=== PATIENT | male | born 1955 | race Hispanic/Latino ===

== ENCOUNTER 2019-06-30 20:19 | Emergency (ER) | payer OTHER ==
[2019-06-30] MEDS ORDERED: ONDANSETRON 4 MG/2 ML VIAL ONE (20:43)
[2019-06-30] MEDS ORDERED: MORPHINE 4 MG/ML SYR ONE (20:43)
[2019-06-30] MEDS ORDERED: FENTANYL CITR 100 MCG/2 ML ONE (21:01)
[2019-06-30] MEDS ORDERED: NA CHLORIDE 0.9% 1,000 ML ONE (21:07)
[2019-06-30] MEDS ORDERED: propofoL 200 MG/20 ML VIAL IV ONE (21:32)
--- NOTE | 2019-06-30 22:29 | ER ---
Nurse's Notes [facility] Name: Pb Pederson Age: 63 yrs Sex: Male : 1955 Arrival Date: 06/30/2019 Time: 20:21 Bed 8 Private MD: Diagnosis: Dislocation of unspecified parts of right shoulder girdle Presentation: 06/29 20:32 Chief complaint: Patient states: he tripped over the plank in the doorway then fell bb onto his right arm. Coronavirus screen: The patient has NOT traveled to a country currently being monitored by the CDC within the last 14 days. Proceed with normal triage procedures. Ebola Screen: No symptoms or risks identified at this time. Initial Sepsis Screen: Does the patient meet any 2 criteria? No. Patient's initial sepsis screen is negative. Does the patient have a suspected source of infection? No. Patient's initial sepsis screen is negative. Risk Assessment: Do you want to hurt yourself or someone else? Patient reports no desire to harm self or others. Onset of symptoms was June 30, 2019. 20:32 Method Of Arrival: Ambulatory bb 20:32 Acuity: NICK 3 bb 20:40 Care prior to arrival: None. Mechanism of Injury: Fall from standing position. Trauma mg2 event details: Injury occurred in the [facility], Injury occurred: at home. Injury occurred: June 30, 2019. Trauma Activation: Not Applicable Physician: ED Physician; Name: ; Notified At: ; Arrived At: Physician: General Surgeon; Name: ; Notified At: ; Arrived At: Physician: Radiology; Name: ; Notified At: ; Arrived At: Physician: Respiratory; Name: ; Notified At: ; Arrived At: Physician: Lab; Name: ; Notified At: ; Arrived At: Historical: - Allergies: 20:36 No Known Allergies; bb - Home Meds: 20:36 Lisinopril Oral [Active]; Fish Oil oral oral [Active]; Simvastatin Oral [Active]; bb Omeprazole Oral [Active]; - PMHx: 20:36 Hypertension; Hyperlipidemia; GERD; bb - PSHx: 20:36 back surgery; tumor from breast removed; bb - Immunization history:: Adult Immunizations up to date. - Social history:: Smoking status: Patient denies any tobacco usage or history of. - Immunization history: Last tetanus immunization: unknown. Screenin:38 Abuse screen: Denies threats or abuse. Denies injuries from another. Nutritional mg2 screening: No deficits noted. Tuberculosis screening: No symptoms or risk factors identified. 21:00 Fall Risk Fall in past 12 months (25 points). IV access (20 points). mg2 Primary Survey: 20:37 NO uncontrolled hemorrhage observed. A: The patient is alert. Airway: patent, No mg2 supplemental oxygen in use on arrival. Breathing/Chest: Respiratory pattern: regular, Respiratory effort: spontaneous, unlabored, Breath sounds: clear, bilaterally. in mediastinum, right upper lobe, left upper lobe, right middle lobe, left lower lobe and right lower lobe. Circulation: Skin color: pink. Disability Alert. Exposure/Environment: All clothing and personal items were removed. Forensic evidence collection is not deemed to be indicated at this time. Items placed in patient belonging bag. There is no evidence of uncontrolled external bleeding. Obvious injury(ies) are noted at this time: dislocation or deformity in the right arm A warming method has been applied: A warm blanket has been provided to the patient. 21:30 Reassessment Airway Airway Patent Oxygen No O2 Breathing/Chest Respiratory pattern mg2 Regular Respiratory effort Spontaneous Unlabored Breath sounds Clear Chest inspection Symmetrical Circulation Color Seth Ward Disability Alert. Secondary Survey: 20:38 HEENT: No deficits noted. Gastrointestinal: No deficits noted. : No deficits noted. mg2 Musculoskeletal: Circulation, motion, and sensation intact. Capillary refill < 3 seconds, Bony deformity noted of right arm. Assessment: 20:38 General: Appears uncomfortable, Behavior is calm, cooperative. Pain: Complains of pain mg2 in right arm. Neuro: Level of Consciousness is awake, alert, obeys commands, Oriented to person, place, time, situation. Cardiovascular: Capillary refill < 3 seconds Patient's skin is warm and dry. Respiratory: Airway is patent Respiratory effort is even, unlabored, Respiratory pattern is regular, symmetrical. GI: No signs and/or symptoms were reported involving the gastrointestinal system. : No signs and/or symptoms were reported regarding the genitourinary system. EENT: No signs and/or symptoms were reported regarding the EENT system. Derm: Skin is intact, is healthy with good turgor, Skin is pink, warm \T\ dry. normal. Musculoskeletal: Circulation, motion, and sensation intact. Capillary refill < 3 seconds, Bony deformity noted of right arm. 21:09 Reassessment: patient is complaining of dizziness he looks pale probably as side effect mg2 of morphine. BP dropped. provider informed and ordered to give IV fluids. 22:30 Reassessment: Patient appears in no apparent distress at this time. Patient and/or mg2 family updated on plan of care and expected duration. Pain level reassessed. Patient is alert, oriented x 3, equal unlabored respirations, skin warm/dry/pink. patient is fully awake., pls refer to sedation flowsheet. he was able to pee, drink without vomiting, alert and oriented x4. Vital Signs: 20:32 BP 125 / 83; Pulse 64; Resp 16 S; Temp 96.8(TE); Pulse Ox 97% on R/A; Weight 88.45 kg bb (R); Height 5 ft. 7 in. (170.18 cm) (R); Pain 8/10; 21:07 BP 83 / 57; Pulse 56; Resp 18; Pulse Ox 95% on R/A; mg2 21:20 BP 116 / 70; Pulse 55; Resp 18; Pulse Ox 100% on R/A; mg2 21:50 BP 128 / 70; Pulse 80; Resp 18; Temp 98; Pulse Ox 96% on R/A; mg2 22:30 BP 122 / 77; Pulse 66; Resp 18; Pulse Ox 96% on R/A; mg2 20:32 Body Mass Index 30.54 (88.45 kg, 170.18 cm) bb Kenneth Coma Score: 20:37 Eye Response: spontaneous(4). Verbal Response: oriented(5). Motor Response: obeys mg2 commands(6). Total: 15. 21:50 Eye Response: spontaneous(4). Verbal Response: oriented(5). Motor Response: obeys mg2 commands(6). Total: 15. Trauma Score (Adult): 20:37 Eye Response: spontaneous(1); Verbal Response: oriented(1); Motor Response: obeys mg2 commands(2); Systolic BP: > 89 mm Hg(4); Respiratory Rate: 10 to 29 per min(4); Burkburnett Score: 15; Trauma Score: 12 21:50 Eye Response: spontaneous(1); Verbal Response: oriented(1); Motor Response: obeys mg2 commands(2); Systolic BP: > 89 mm Hg(4); Respiratory Rate: 10 to 29 per min(4); Kenneth Score: 15; Trauma Score: 12 ED Course: 20:21 Patient arrived in ED. cl3 20:24 Eleazar Lira, JAH is Primary Nurse. rv 20:26 Paulino Herring MD is Attending Physician. tw4 20:34 Triage completed. bb 20:36 Arm band placed on Patient placed in an exam room, on a stretcher, on pulse oximetry. bb Family accompanied patient. 20:38 Inserted saline lock: 20 gauge in left antecubital area, using aseptic technique. mg2 Patient maintains SpO2 saturation greater than 95% on room air. 20:40 Patient has correct armband on for positive identification. Placed in gown. Side rails mg2 up X 1. Pulse ox on. NIBP on. Door closed. Warm blanket given. 20:40 Thermoregulation: warm blanket given to patient. mg2 20:42 Onel Pastrana, JAH is Primary Nurse. mg2 20:52 Shoulder Right (2 View) XRAY In Process Unspecified. EDMS 21:38 Assist provider with reduction of right shoulder using manipulation, Set up for mg2 procedure. Performed by Paulino Herring MD Immobilized with sling, Patient tolerated well. 21:54 Shoulder Right (2 View) XRAY In Process Unspecified. EDMS 23:00 IV discontinued, intact, bleeding controlled, No redness/swelling at site. Pressure mg2 dressing applied. Administered Medications: 20:48 Drug: morphine 4 mg Route: IVP; Site: left antecubital; jd3 20:55 Follow up: Response: No adverse reaction; RASS: Alert and Calm (0) jd3 20:48 Drug: Zofran (Ondansetron) 4 mg Route: IVP; Site: left antecubital; jd3 20:55 Follow up: Response: No adverse reaction jd3 21:08 Drug: NS 0.9% 1000 ml Route: IV; Rate: 1000 ml; Site: left antecubital; mg2 22:32 Follow up: Response: No adverse reaction; IV Status: Completed infusion; IV Intake: mg2 1000ml 21:23 Drug: fentaNYL (PF) 50 mcg Route: IVP; Site: left subclavian; mg2 22:32 Follow up: Response: No adverse reaction mg2 21:35 Drug: Propofol 100 mg {Note: given 60 mg IV .} Route: IVP; Site: left antecubital; mg2 22:32 Follow up: Response: No adverse reaction mg2 Intake: 20:37 PO: 0ml; Total: 0ml. mg2 22:32 IV: 1000ml; Total: 1000ml. mg2 Outcome: 22:28 Discharge ordered by . [email or web address] 23:00 Patient's length of stay in the Emergency Department was greater than 2 hours. have the mg2 patient meet the dc criteria post conscious sedationPatient's length of stay extended due to 23:01 Patient left the ED. mg2 23:01 Discharged to home via wheelchair, with family. mg2 23:01 Condition: stable 23:01 Discharge instructions given to patient, family, Instructed on discharge instructions, mg2 follow up and referral plans. medication usage, Demonstrated understanding of instructions, follow-up care, medications, Prescriptions given X 2. Signatures: Dispatcher [employer] EDGema Ramirez RN RN bb Ankush Alcazar RN RN jd3 Wadley, Terrence, MD MD tw4 Onel Pastrana RN RN mg2 Eleazar Lira RN RN rv Lewis, Charde cl3
--- NOTE | 2019-06-30 22:29 | EDPHYS ---
Physician Documentation [facility] Name: Pb Pederson Age: 63 yrs Sex: Male : 1955 Arrival Date: 06/30/2019 Time: 20:21 Bed 8 Private MD: ED Physician Paulino Herring HPI: 06/30 03:08 This 63 yrs old Male presents to ER via Ambulatory with complaints of Fall tw4 Injury. 03:08 Details of fall: The patient fell from an upright position, while standing. Onset: The tw4 symptoms/episode began/occurred today. Associated injuries: The patient sustained anterior aspect of right shoulder, decreased range of motion, deformity, painful injury. Severity of symptoms: At their worst the symptoms were moderate, in the emergency department the symptoms are unchanged. The patient has not experienced similar symptoms in the past. Historical: - Allergies: 06/29 20:36 No Known Allergies; bb - Home Meds: 20:36 Lisinopril Oral [Active]; Fish Oil oral oral [Active]; Simvastatin Oral [Active]; bb Omeprazole Oral [Active]; - PMHx: 20:36 Hypertension; Hyperlipidemia; GERD; bb - PSHx: 20:36 back surgery; tumor from breast removed; bb - Immunization history:: Adult Immunizations up to date. - Social history:: Smoking status: Patient denies any tobacco usage or history of. - Immunization history: Last tetanus immunization: unknown. ROS: 06/30 03:08 Constitutional: Negative for fever, chills, and weight loss, Eyes: Negative for injury, tw4 pain, redness, and discharge, Cardiovascular: Negative for chest pain, palpitations, and edema, Respiratory: Negative for shortness of breath, cough, wheezing, and pleuritic chest pain, Abdomen/GI: Negative for abdominal pain, nausea, vomiting, diarrhea, and constipation, Skin: Negative for injury, rash, and discoloration, Neuro: Negative for headache, weakness, numbness, tingling, and seizure. MS/extremity: Positive for injury or acute deformity, decreased range of motion, deformity, pain, swelling, tenderness, Negative for abrasion, bite. Exam: 03:08 Constitutional: This is a well developed, well nourished patient who is awake, alert, tw4 and in no acute distress. Head/Face: Normocephalic, atraumatic. Chest/axilla: Normal chest wall appearance and motion. Nontender with no deformity. No lesions are appreciated. Cardiovascular: Regular rate and rhythm with a normal S1 and S2. No gallops, murmurs, or rubs. Normal PMI, no JVD. No pulse deficits. Respiratory: Lungs have equal breath sounds bilaterally, clear to auscultation and percussion. No rales, rhonchi or wheezes noted. No increased work of breathing, no retractions or nasal flaring. Abdomen/GI: Soft, non-tender, with normal bowel sounds. No distension or tympany. No guarding or rebound. No evidence of tenderness throughout. Back: No spinal tenderness. No costovertebral tenderness. Full range of motion. Neuro: Awake and alert, GCS 15, oriented to person, place, time, and situation. Cranial nerves II-XII grossly intact. Motor strength 5/5 in all extremities. Sensory grossly intact. Cerebellar exam normal. Normal gait. 03:08 Musculoskeletal/extremity: Extremities: noted in the anterior aspect of right shoulder: decreased ROM, pain. Vital Signs: 03/05 20:32 BP 125 / 83; Pulse 64; Resp 16 S; Temp 96.8(TE); Pulse Ox 97% on R/A; Weight 88.45 kg bb (R); Height 5 ft. 7 in. (170.18 cm) (R); Pain 8/10; 21:07 BP 83 / 57; Pulse 56; Resp 18; Pulse Ox 95% on R/A; mg2 21:20 BP 116 / 70; Pulse 55; Resp 18; Pulse Ox 100% on R/A; mg2 21:50 BP 128 / 70; Pulse 80; Resp 18; Temp 98; Pulse Ox 96% on R/A; mg2 22:30 BP 122 / 77; Pulse 66; Resp 18; Pulse Ox 96% on R/A; mg2 20:32 Body Mass Index 30.54 (88.45 kg, 170.18 cm) bb Mccune Coma Score: 20:37 Eye Response: spontaneous(4). Verbal Response: oriented(5). Motor Response: obeys mg2 commands(6). Total: 15. 21:50 Eye Response: spontaneous(4). Verbal Response: oriented(5). Motor Response: obeys mg2 commands(6). Total: 15. Trauma Score (Adult): 20:37 Eye Response: spontaneous(1); Verbal Response: oriented(1); Motor Response: obeys mg2 commands(2); Systolic BP: > 89 mm Hg(4); Respiratory Rate: 10 to 29 per min(4); Kenneth Score: 15; Trauma Score: 12 21:50 Eye Response: spontaneous(1); Verbal Response: oriented(1); Motor Response: obeys mg2 commands(2); Systolic BP: > 89 mm Hg(4); Respiratory Rate: 10 to 29 per min(4); Kenneth Score: 15; Trauma Score: 12 Procedures: 06/30 02:59 Reduction: of the right shoulder, using traction, manipulation, Immobilized with. Joint tw4 Treatment:. Moderate sedation: Pre-procedure assessment: the patient has been NPO an unknown amount of time prior to arrival, ASA physical classification: I - healthy, no underlying organic disease, Airway assessment: able to hyperextend neck, Mallampati classification of tongue size: I - faucial pillars, soft palate, and uvula can be fully visualized, Monitoring during procedure: cardiac monitor technician, continuous pulse oximetry, nurse at bedside at all times. MDM: 06/29 20:57 Patient medically screened. tw4 06/30 02:59 Differential diagnosis: contusion, fracture, multiple trauma, sprain, strain. Data tw4 reviewed: vital signs, nurses notes. Data interpreted: Pulse oximetry: Interpretation: normal. Counseling: I had a detailed discussion with the patient and/or guardian regarding: the historical points, exam findings, and any diagnostic results supporting the discharge/admit diagnosis. Special discussion: I discussed with the patient/guardian in detail that at this point there is no indication for admission to the hospital. It is understood, however, that if the symptoms persist or worsen the patient needs to return immediately for re-evaluation. 03:08 Medication response: fentanyl. Response to treatment: and as a result, I will discharge tw4 patient. 06/29 20:37 Order name: Shoulder Right (2 View) XRAY tw4 06/29 21:41 Order name: Shoulder Right (2 View) XRAY tw4 Administered Medications: 06/29 20:48 Drug: morphine 4 mg Route: IVP; Site: left antecubital; jd3 20:55 Follow up: Response: No adverse reaction; RASS: Alert and Calm (0) jd3 20:48 Drug: Zofran (Ondansetron) 4 mg Route: IVP; Site: left antecubital; jd3 20:55 Follow up: Response: No adverse reaction jd3 21:08 Drug: NS 0.9% 1000 ml Route: IV; Rate: 1000 ml; Site: left antecubital; mg2 22:32 Follow up: Response: No adverse reaction; IV Status: Completed infusion; IV Intake: mg2 1000ml 21:23 Drug: fentaNYL (PF) 50 mcg Route: IVP; Site: left subclavian; mg2 22:32 Follow up: Response: No adverse reaction mg2 21:35 Drug: Propofol 100 mg {Note: given 60 mg IV .} Route: IVP; Site: left antecubital; mg2 22:32 Follow up: Response: No adverse reaction mg2 Disposition: 06/30/19 22:28 Discharged to Home. Impression: Dislocation of unspecified parts of right shoulder girdle. - Condition is Stable. - Discharge Instructions: Shoulder Dislocation. - Prescriptions for Ibuprofen 800 mg Oral Tablet - take 1 tablet by ORAL route every 12 hours As needed take with food; 20 tablet. Tylenol- Codeine #3 300-30 mg Oral Tablet - take 2 tablet by ORAL route every 6 hours As needed; 6 tablet. - Medication Reconciliation Form, Thank You Letter, Antibiotic Education, Prescription Opioid Use, Work release form, Family Work Release form. - Follow up: Private Physician; When: Upon discharge from the Emergency Department; Reason: Recheck today's complaints, Continuance of care, Re-evaluation by your physician. - Problem is new. - Symptoms have improved. Signatures: Dispatcher [employer] [facility] Gema Jj RN RN bb Ankush Alcazar RN RN jd3 Paulino Herring MD MD tw4 Onel Pastrana RN RN mg2 Corrections: (The following items were deleted from the chart) 21:53 21:42 Shoulder Right 2 View+[email or web address] ordered. [facility] 23:01 22:28 06/30/2019 22:28 Discharged to Home. Impression: Dislocation of unspecified parts mg2 of right shoulder girdle. Condition is Stable. Forms are Medication Reconciliation Form, Thank You Letter, Antibiotic Education, Prescription Opioid Use. Follow up: Private Physician; When: Upon discharge from the Emergency Department; Reason: Recheck today's complaints, Continuance of care, Re-evaluation by your physician. Problem is new. Symptoms have improved. tw4
--- NOTE | 2019-07-01 08:04 | RAD REPORT ---
EXAM DESCRIPTION: RAD - Shoulder Right 2 View - 06/30/2019 8:52 pm CLINICAL HISTORY: Right shoulder pain FINDINGS: Anterior right humeral dislocation No fracture seen
--- NOTE | 2019-07-01 08:05 | RAD REPORT ---
EXAM DESCRIPTION: RAD - Shoulder Right 2 View - 06/30/2019 9:54 pm CLINICAL HISTORY: Right shoulder dislocation FINDINGS: Previously described dislocation appears reduced Hill-Sachs deformity
== END 2019-06-30 23:01 | disposition home or self-care (01) ==
LOC: ER 20:19
PROC: 0RSJXZZ Reposition Right Shoulder Joint, External Approach (ICD-10-PCS; principal; 2019-06-30)
DX: S43.304A Dislocation of unspecified parts of right shoulder girdle, initial encounter (principal); W19.XXXA Unspecified fall, initial encounter; Y93.9 Activity, unspecified; Y92.9 Unspecified place or not applicable; I10 Essential (primary) hypertension; E78.5 Hyperlipidemia, unspecified
CPT/HCPCS: 96361; 73030 ×2; 96375; 96374; 99285; 23655; J2704; J3010; J7030; J2405